=== PATIENT | male | born 1955 | race Caucasian/White ===

== ENCOUNTER 2016-10-03 18:43 | Observation (INO) | payer OTHER ==
[~2016-10-03] VITALS: Ht 175.3 cm; Wt 101.4 kg
--- NOTE | 2016-10-03 20:51 | ED ORDER SUMMARY ---
..... Patient: ADÁN MILLER OrderSheet [facility] VisitID: [id number] [place], [place] [id number] 60y, M Registration Date/Time: 10/03/2016 ORDER SHEET Weight: 105.7 kg (measured) Allergies: No Known Drug Allergy GENERAL ORDERS: Chest 1V Urgent (18:50 10/03/2016 Jayne LAMB) (Ack 18:58 Yenni) (19:03 JRomanelli R.N.) Mold Setter (Continuous) (18:51 10/03/2016 Jayne LAMB) (18:58 TLewis R.N.) (Ack 18:58 Yenni) CT Head wo Cont Urgent (18:51 10/03/2016 Jayne LAMB) (Ack 18:58 Yenni) (19:03 omanelli R.N.) CBC w Diff Urgent (18:51 10/03/2016 Jayne LAMB) (18:58 TLewis R.N.) (Ack 18:58 Yenni) CMP Urgent (18:51 10/03/2016 Jayne LAMB) (18:58 TLewis R.N.) (Ack 18:58 Yenni) UA-Culture if indicated Urgent (18:51 10/03/2016 Jayne LAMB) (Ack 18:58 Yenni) (20:26 ALawrence ER Tech1) PT with INR Urgent (18:51 10/03/2016 Jayne LAMB) (18:58 TLewis R.N.) (Ack 18:58 Yenni) PTT Urgent (18:51 10/03/2016 Jayne LAMB) (18:58 TLewis R.N.) (Ack 18:58 Yenni) Amylase Urgent (18:51 10/03/2016 Jayne LAMB) (18:58 TLewis R.N.) (Ack 18:58 Yenni) Lipase Urgent (18:51 10/03/2016 Jayne LAMB) (18:58 TLewis R.N.) (Ack 18:58 Yenni) CPK Urgent (18:51 10/03/2016 Jayen LAMB) (18:58 TLewis R.N.) (Ack 18:58 Yenni) Troponin-I Urgent (18:51 10/03/2016 Jayne LAMB) (Ack 18:58 Yenni) (18:58 Sukhdevwis R.N.) Ethyl Alcohol Urgent (18:51 10/03/2016 Jayne LAMB) (Ack 18:58 Yenni) (18:58 Sukhdevwis R.N.) Urine Drug Screen Urgent (18:51 10/03/2016 Jayne LAMB) (Ack 18:58 Yenni) (20:26 ALawrence ER Tech1) Oxygen (2 L/min) (NC) (18:51 10/03/2016 Jayne LAMB) (Ack 18:58 Yenni) (19:20 SRoberts R.N.) Pulse oximeter (18:51 10/03/2016 Jayne LAMB) (18:58 Dalias R.N.) (Ack 18:58 Yenni) EKG - ER Stat (18:51 10/03/2016 Jayne LAMB) (18:55 Yenni) MEDICATION ORDERS: Aspirin PO 325 mg (NOW) (20:50 10/03/2016 Jayne LAMB) (21:10 Sukhdevwis R.N.) IV FLUIDS: IV Saline Lock (18:51 10/03/2016 Jayne LAMB) (19:20 SRoberts R.N.) IV Saline Lock (18:52 10/03/2016 Jayne LAMB) (Ack 20:04 Val R.N.) (Cancelled: Other21:56 oberts R.N.) ORDER SHEET NOTES: [Electronically signed by Mag Riley R.N. (21:57 10/03/2016)] [Electronically signed by Ifeanyi Fernandez MD (22:56 10/04/2016)] [Electronically locked/signed by Mag Riley R.N. (21:57 10/03/2016)]
--- NOTE | 2016-10-03 20:51 | ED CLINICAL REPORT ---
Clinical Report - Physicians/Mid Levels [facility] [address] [place] [address] 10/03/2016 18:44 Patient: ADÁN MILLER Time Seen: 18:45. Arrived- By private vehicle. Historian- patient and spouse. HISTORY OF PRESENT ILLNESS Chief Complaint: slurred speech. This started just prior to arrival and is still present. It was abrupt in onset and has been waxing/waning. The patient has had visual disturbance with double vision of the right and left eye (during the event. This has resolved now). (Patient came to the emergency room with his . She was concerned because the patient apparently had been slurring his speech and they felt that he may have had some facial droop. She also says that he was stumbling and listing off to one side when trying to walk. The nurses noted some facial droop in triage when he first arrived. He was experiencing double vision at the time of the event but says that this has resolved now. He denies having had any focal numbness weakness or tingling. He acknowledges having drank about 6 beers and having smoked some marijuana prior to arriving here. He says that he has been retired for about a year and a half and says that it has been a "rough life change."). REVIEW OF SYSTEMS No chills, fever, sweats, calf pain or chest pain. No cough, difficulty breathing, pedal edema, palpitations or abdominal pain. No constipation, diarrhea, nausea, vomiting or urinary problems. PAST HISTORY PCP - [facility]. Additional Surgeries: Knee Surgery. Medications: Metoprolol Tartrate Oral, daily. Lisinopril Oral 20 mg, daily. Allergies: No Known Drug Allergy. SOCIAL HISTORY Heavy alcohol use; consumes six beers. History of heavy drug use: marijuana. Recently used drugs just prior to arrival. He lives with spouse. Has good social support. FAMILY HISTORY Heart disease in first-degree relative (father and sibling). ADDITIONAL NOTES The nursing notes have been reviewed. PHYSICAL EXAM Vital Signs: 10/03/2016 18:55 BP: 166/98. HR: 80. RR: 16. O2 saturation: 96%. Temp: 98.0 F. Appearance: Alert. Eyes: Pupils equal, round and reactive to light. ENT: Pharynx normal. Neck: Normal inspection. CVS: Normal heart rate and rhythm. Heart sounds normal. Respiratory: Decreased air movement. Abdomen: Soft and nontender. Bowel sounds normal. No mass. Obese. Back: Normal inspection. Skin: Skin warm and dry. Extremities: No calf tenderness. Neuro: Oriented X 3. No motor deficit. No sensory deficit. Reflexes normal. LABS, X-RAYS, AND EKG EKG: Q waves in lead II, III and aVF. Prior EKG unavailable. The study has been independently viewed by me. Chest X-ray: (RUL nodule). The X-rays were independently viewed by me. CT Head: No acute changes. The study was interpreted contemporaneously by me and discussed with the radiologist. Laboratory Tests: UA-Culture if indicated: (HILARIA: 10/03/2016 20:20) ( [facility] 10/03/2016 20:44) Final results Test Result Flag Units (Reference) URINE COLOR LIGHT YELLOW URINE APPEARANCE CLEAR URINE GLUCOSE NEGATIVE (NEGATIVE) URINE BILIRUBIN NEGATIVE (NEGATIVE) URINE KETONE NEGATIVE (NEGATIVE) URINE SPECIFIC GRAVITY <= 1.005 L (1.010-1.030) URINE PH 6.0 (5.0-8.0) URINE PROTEIN NEGATIVE (NEGATIVE) URINE UROBILINOGEN 0.2 EU/dL (0.2-1.0) URINE NITRITE NEGATIVE (NEGATIVE) URINE BLOOD NEGATIVE (NEGATIVE) URINE LEUK ESTERASE NEGATIVE (NEGATIVE) URINE RBC NONE SEEN rbc/hpf (0-1) URINE WBC NONE SEEN wbc/hpf (0-1) URINE EPITHELIAL CELLS NONE SEEN EPI/hpf (0-5) URINE BACTERIA NONE SEEN (NONE SEEN) URINE COMMENT CULT NOT INDICATED URINE CULTURES ARE SET-UP BASED ON THE FOLLOWING CRITERIA:POSITIVE NITRITEPOSITIVE LEUKOCYTE ESTERASEGREATER THAN 10 WHITE BLOOD CELLSMODERATE (2+) OR GREATER BACTERIA CBC w Diff: (HILARIA: 10/03/2016 18:45) ( [facility] 10/03/2016 19:03) Final results Test Result Flag Units (Reference) WHITE BLOOD COUNT 10.6 K/uL (4.5-11.5) RED BLOOD COUNT 5.30 M/uL (4.50-5.90) HEMOGLOBIN 17.0 gm/dL (13.5-17.5) HEMATOCRIT 49.8 % (41.0-53.0) MEAN CELL VOLUME 94 fL (80-100) MEAN CORPUSCULAR HGB 32 pg (26-34) MEAN CORPUSCULAR HGB CONC 34 g/dL (31-37) RED CELL DISTRIBUTION WIDTH 13.6 % (11.6-14.8) PLATELET COUNT 229 K/uL (150-400) NEUTROPHIL % 50.9 % (50-75) LYMPH % 33.9 % (25-40) MONO % 11.0 % (3-14) EOSINOPHIL % 3.2 % (0-4) BASOPHIL % 1.0 % (0-2) PT with INR: (HILARIA: 10/03/2016 18:45) ( [facility] 10/03/2016 19:03) Final results Test Result Flag Units (Reference) INR 0.9 (0.8-1.2) Low Intensity Therapy: INR 1.5-2.0 PT range 18.5-23.1Mod.Intensity Therapy: INR 2.0-3.0 PT range 23.1-31.5High Intensity Therapy: INR 2.5-3.5 PT range 27.4-35.5High Intensity Therapy 2: INR 3.0-4.0 PT range 31.5-39.3 APTT 24 SECONDS (24-34) Urine Drug Screen: (HILARIA: 10/03/2016 20:20) ( [facility] 10/03/2016 21:03) Final results Test Result Flag Units (Reference) AMPHETAMINE/METHAMPHETAMINE NEGATIVE (NEGATIVE) BARBITURATE NEGATIVE (NEGATIVE) BENZODIAZEPINE NEGATIVE (NEGATIVE) CANNABINOID POSITIVE H (NEGATIVE) COCAINE NEGATIVE (NEGATIVE) ECSTASY NEGATIVE (NEGATIVE) METHADONE NEGATIVE (NEGATIVE) OPIATE NEGATIVE (NEGATIVE) The urine drug screen is a qualitative screening test fordrug overdose and abuse. All screen results should beconsidered as presumptive.Drugs screened for are as follows:BenzodiazepinesCocaineAmphetamines/MetamphetaminesTHC (Tetrahydrocannabinol)OpiatesBarbituratesEcstasyMethadonePositive results are unconfirmed. For confirmation, notifythe lab for the specimen to be sent to the reference lab.All confirmations must be performed by a differentmethodology.The ingestion of natural herbal and plant productscontaining Ephedra/Ephedra metabolites can produce in urineone or more substances capable of cross reacting withamphetamine/methamphetamine immunoassays. These testsprovide a preliminary result only. A more specificalternative chemical method must be used to obtain aconfirmed analytical result. CMP: (HILARIA: 10/03/2016 18:45) ( MsgRcvd 10/03/2016 19:27) Final results Test Result Flag Units (Reference) GLUCOSE 105 mg/dL (70-110) BUN 17 mg/dL (7-18) CREATININE 1.0 mg/dL (0.6-1.3) Estimated GFR >60 mL/min Estimated GFR- >60 mL/min Note: Persistent reduction over 3 months in eGFR<60 mL/min/1.73 m2 defines CKD. Patients with eGFR values>=60 mL/min/1.73 m2 may also have CKD if evidence ofpersistent proteinuria. Additional information may be foundat www.kidney.org. SODIUM 135 L mmol/L (136-145) POTASSIUM 3.8 mmol/L (3.5-5.1) CHLORIDE 100 mmol/L (98-107) CARBON DIOXIDE 26 mmol/L (21-32) CALCIUM 9.0 mg/dL (8.5-10.1) TOTAL PROTEIN 7.4 g/dL (6.4-8.2) ALBUMIN 3.7 g/dL (3.3-5.0) BILIRUBIN, TOTAL 0.3 mg/dL (0.0-1.0) ALKALINE PHOSPHATASE 55 U/L (46-116) AST (SGOT) 38 H U/L (15-37) ALT (SGPT) 68 U/L (12-78) LIPASE 140 U/L (73-393) AMYLASE 72 U/L (25-115) CPK 90 U/L (24-260) TROPONIN I <0.05 L ng/mL (0.00-1.5) TROPONIN REFERENCE RANGE:<0.1 NEGATIVE0.1-1.5 INDETERMINANT>1.5 POSITIVE ETHYL ALCOHOL 153 H mg/dL (3-10) . PROGRESS AND PROCEDURES Course of Care: Patient is stable. Discussed case with hospitalist, (Jose Elias). Reviewed test results and need for additional work-up. Agreed upon treatment plan, need for patient follow-up and decision to place in observation. Health care provider will see patient in hospital. Patient/family counseled. Old medical records ordered. Old records unavailable. Disposition: Admitted. Observation. CLINICAL IMPRESSION Pulmonary nodule right upper lobe. Transient ischemic attack. Substance abuse- alcohol, marijuana. (Electronically signed by Ifeanyi Fernandez MD 10/04/2016 22:56)
--- NOTE | 2016-10-03 20:51 | ED ORDER SUMMARY ---
..... Patient: ADÁN MILLER OrderSheet [facility] VisitID: [id number] [place], [place] [phone] 60y, M Registration Date/Time: 10/03/2016 ORDER SHEET Weight: 105.7 kg (measured) Allergies: No Known Drug Allergy GENERAL ORDERS: Chest 1V Urgent (18:50 10/03/2016 Jayne LAMB) (Ack 18:58 Yenni) (19:03 JRomanelli R.N.) Sponge Fisherman (Continuous) (18:51 10/03/2016 Jayne LAMB) (18:58 TLewis R.N.) (Ack 18:58 Yenni) CT Head wo Cont Urgent (18:51 10/03/2016 Jayne LAMB) (Ack 18:58 Yenni) (19:03 omanelli R.N.) CBC w Diff Urgent (18:51 10/03/2016 Jayne LAMB) (18:58 TLewis R.N.) (Ack 18:58 Yenni) CMP Urgent (18:51 10/03/2016 Jayne LAMB) (18:58 TLewis R.N.) (Ack 18:58 Yenni) UA-Culture if indicated Urgent (18:51 10/03/2016 Jayne LAMB) (Ack 18:58 Yenni) (20:26 ALawrence ER Tech1) PT with INR Urgent (18:51 10/03/2016 Jayne LAMB) (18:58 TLewis R.N.) (Ack 18:58 Yenni) PTT Urgent (18:51 10/03/2016 Jayne LAMB) (18:58 TLewis R.N.) (Ack 18:58 Yenni) Amylase Urgent (18:51 10/03/2016 Jayne LAMB) (18:58 TLewis R.N.) (Ack 18:58 Yenni) Lipase Urgent (18:51 10/03/2016 Jayne LAMB) (18:58 TLewis R.N.) (Ack 18:58 Yenni) CPK Urgent (18:51 10/03/2016 Jayne LAMB) (18:58 TLewis R.N.) (Ack 18:58 Yenni) Troponin-I Urgent (18:51 10/03/2016 Jayne LAMB) (Ack 18:58 Yenni) (18:58 Sukhdevwis R.N.) Ethyl Alcohol Urgent (18:51 10/03/2016 Jayne LAMB) (Ack 18:58 Yenni) (18:58 Sukhdevwis R.N.) Urine Drug Screen Urgent (18:51 10/03/2016 Jayne LAMB) (Ack 18:58 Yenni) (20:26 ALawrence ER Tech1) Oxygen (2 L/min) (NC) (18:51 10/03/2016 Jayne LAMB) (Ack 18:58 Yenni) (19:20 SRoberts R.N.) Pulse oximeter (18:51 10/03/2016 Jayne LAMB) (18:58 Dalias R.N.) (Ack 18:58 Yenni) EKG - ER Stat (18:51 10/03/2016 Jayne LAMB) (18:55 Yenni) MEDICATION ORDERS: Aspirin PO 325 mg (NOW) (20:50 10/03/2016 Jayne LAMB) (21:10 Sukhdevwis R.N.) IV FLUIDS: IV Saline Lock (18:51 10/03/2016 Jayne LAMB) (19:20 SRoberts R.N.) IV Saline Lock (18:52 10/03/2016 Jayne LAMB) (Ack 20:04 Val R.N.) (Cancelled: Other21:56 oberts R.N.) ORDER SHEET NOTES: [Electronically signed by Mag Riley R.N. (21:57 10/03/2016)] [Electronically signed by Ifeanyi Fernandez MD (22:56 10/04/2016)] [Electronically locked/signed by Mag Riley R.N. (21:57 10/03/2016)]
--- NOTE | 2016-10-03 20:51 | ED NURSING NOTES ---
Clinical Report - Nurses [facility] [address] [place] [address] 10/03/2016 18:44 [id number] Triage time 18:43. Acuity: LEVEL 2. Chief Complaint: IMPAIRED SPEECH and FACIAL DROOP. 18:55 10/03/16. Alert. SEPSIS SCREEN: Sepsis Screen. Negative (no infection suspected/documented). MARIANA COMA SCORE: [place] Coma Scale: 15- eyes open spontaneously (4); best verbal response- oriented x 4 (5); best motor response- obeys commands (6). --18:55 Kolby Roe R.N. 18:55 10/03/16. BP: 166/98. HR: 80. RR: 16. O2 saturation: 96%. Temp: 98.0 F. Pain level now 0/10. --18:55 Kolby Roe R.N. Weight: 105.7 kg measured. Height/Length: 69 inches Per Patient. BMI: 34.4. --18:51 Kolby Roe R.N. Medications Lisinopril Oral 20 mg, daily. --18:53 Kolby Roe R.N. Metoprolol Tartrate Oral, daily. --18:54 Kolby Roe R.N. Allergies No Known Drug Allergy. --18:54 Kolby Roe R.N. Medication/allergy information source: the patient's spouse. --18:55 Kolby Roe R.N. History Historian: patient. ( Code stroke called at 1843. Per , he had some slurred speech and confusion and left sided facial weakness. slight left sided facial droop in lobby and some confusion present. tearful in triage. states he smoked marijuana just prior to arrival and had about 6 beers just RETIREMENT CONSULTANT. tearful in triage). This started just prior to arrival. Patient was last known well (at 1800). Onset. (10 minutes RETIREMENT CONSULTANT). Treatment RETIREMENT CONSULTANT: None. SOCIAL HX: Former smoker, end date 07/2016. Alcohol use; consumes six beers a day. History of drug use: marijuana. FALL RISK ASSESSMENT: Fall risk assessment completed. No fall risk identified. NUTRITIONAL RISK ASSESSMENT: The nutritional risk assessment revealed no deficiencies. FUNCTIONAL ASSESSMENT: Functional assessment: no impairments noted. LEARNING NEEDS ASSESSMENT: The learning needs assessment revealed no barriers. SKIN INTEGRITY ASSESSMENT: Skin integrity risk assessment completed. No skin integrity risk identified. --18:55 Kolby Roe R.N. PROBLEMS: Hypercholesterolemia. Hypertension. --18:55 Kolby Roe R.N. ADDITIONAL SURGERIES: Knee Surgery. --18:55 Kolby Roe R.N. Interventions ID band on patient. To treatment room. --18:55 Kolby Roe R.N. PHYSICAL ASSESSMENT To room via wheelchair. Patient gowned. GENERAL / NEURO / PSYCH: Awake. Oriented X 4. Alert. Appears in no acute distress. Speech normal. Mood/affect normal. Moves all extremities. No motor deficit. No sensory deficit. HEENT: No facial asymmetry noted. Pharynx within normal limits. RESPIRATORY: Breath sounds within normal limits. Respirations not labored. CVS: Capillary refill less than 2 seconds. SKIN: Skin is intact, warm and dry. --19:07 Mag Riley R.N. NURSING PROGRESS NOTES 18:52 10/03/16. Patient transported to CT. --18:55 Kolby Roe R.N. The plan of care for this patient has been created. archivist military history, pulse oximeter and NIBP monitor placed on patient. Patient gowned. Head of bed elevated. Call light placed in reach. Bed placed in lowest position. Brakes of bed on. --18:56 Kolby Roe R.N. Finger stick glucose: 95; performed by tech; result shown to the RN. --18:56 Kolby Roe R.N. EKG time: (18:53). EKG was ordered, performed by a tech and shown to the ED physician. --18:56 Critsina Bell <<STRICKEN ENTRY-- Patient transported to CT by stretcher with tech. (18:45 Oct 03 2016). --19:04 Neftaly Harvey R.N. --END STRIKE>> Correction --19:05 Neftaly Harvey R.N. Patient returned from CT by stretcher with tech. ([id number]). --19:04 Neftaly Harvey R.N. 18:53 10/03/2016 Site #1 started via IV in the right antecubital space with an 20g angiocath, with aseptic technique and good blood return; one attempt. Blood drawn: rainbow set. Labeled in the presence of the patient and sent to the lab. Saline lock flushed with 10 mL saline. --19:09 Mag Riley R.N. 19:05 10/03/16. ( CXR in room). --19:05 Neftaly Harvey R.N. 19:10/03/16. BP: 140/91 taken on the left arm, while sitting. HR: 76. RR: 20. O2 saturation: 98% on nasal cannula at 2 liters/minute. Pain level now: 0/10. --19:11 Mag Riley R.N. Oxygen administered by nasal cannula at 2 liters. archivist military history, pulse oximeter and NIBP monitor placed on patient; kaiawhina- Lead II; monitor alarms on. --19:21 Mag Riley R.N. 21:10 10/03/2016 Aspirin PO 325 mg given. Allergies verified and confirmed 5 rights. --21:10 Kaiden Samuels R.N. 21:23 10/03/16. BP: 118/75. HR: 82. RR: 18. O2 saturation: 99% on nasal cannula at 2 liters/minute. Temp: deferred. Pain level now: 0/10. 20:11 10/03/16. BP: 126/78. HR: 85. RR: 16. O2 saturation: 98% on nasal cannula at 2 liters/minute. Pain level now: 0/10. 19:09 10/03/16. BP: 140/91 taken on the left arm, while sitting. HR: 76. RR: 20. O2 saturation: 98% on nasal cannula at 2 liters/minute. Pain level now: 0/10. --21:24 Mag Riley R.N. 21:50 10/03/2016 Site #[address] upon admission; patent, no pain and no signs of infection or infiltration. Good blood return present; flushes easily. --21:57 Mag Riley R.N. DISPOSITION / DISCHARGE Admitted to Acute Care. Transported via stretcher by [employer] with O2. Report was given to a nurse via a phone call. Report included patient's care, treatment, medications, reviewed medication reconcilliation, and condition (including any recent changes or anticipated changes). All questions were answered. Report was acknowledged and care was transferred. (MARYJANE Wayne). --21:35 Mag Riley R.N. 21:23 10/03/16. BP: 118/75. HR: 82. RR: 18. O2 saturation: 99% on nasal cannula at 2 liters/minute. Temp: deferred. Pain level now: 0/10. 20:11 10/03/16. BP: 126/78. HR: 85. RR: 16. O2 saturation: 98% on nasal cannula at 2 liters/minute. Pain level now: 0/10. 19:09 10/03/16. BP: 140/91 taken on the left arm, while sitting. HR: 76. RR: 20. O2 saturation: 98% on nasal cannula at 2 liters/minute. Pain level now: 0/10. 18:46 10/03/16. BP: 166/98. HR: 80. RR: 16. O2 saturation: 96%. Temp: 98.0 F. Pain level now 0/10. --21:35 Mag Riley R.N. Patient's personal items include: shirt, pants, undergarments, socks, shoes and hat; items were placed in belongings bag and transported with the patient. Collection of belongings was witnessed by 1 nurse. --21:36 Mag Riley R.N. Locked/Released at 10/03/2016 21:57 by Mag Riley R.N.
--- NOTE | 2016-10-03 20:51 | ED NURSING NOTES ---
Clinical Report - Nurses [facility] [address] [place] [address] 10/03/2016 18:44 [id number] Triage time 18:43. Acuity: LEVEL 2. Chief Complaint: IMPAIRED SPEECH and FACIAL DROOP. 18:55 10/03/16. Alert. SEPSIS SCREEN: Sepsis Screen. Negative (no infection suspected/documented). MARIANA COMA SCORE: Currie Coma Scale: 15- eyes open spontaneously (4); best verbal response- oriented x 4 (5); best motor response- obeys commands (6). --18:55 Kolby Roe R.N. 18:55 10/03/16. BP: 166/98. HR: 80. RR: 16. O2 saturation: 96%. Temp: 98.0 F. Pain level now 0/10. --18:55 Kolby Roe R.N. Weight: 105.7 kg measured. Height/Length: 69 inches Per Patient. BMI: 34.4. --18:51 Kolby Roe R.N. Medications Lisinopril Oral 20 mg, daily. --18:53 Kolby Roe R.N. Metoprolol Tartrate Oral, daily. --18:54 Kolby Roe R.N. Allergies No Known Drug Allergy. --18:54 Kolby Roe R.N. Medication/allergy information source: the patient's spouse. --18:55 Kolby Roe R.N. History Historian: patient. ( Code stroke called at 1843. Per , he had some slurred speech and confusion and left sided facial weakness. slight left sided facial droop in lobby and some confusion present. tearful in triage. states he smoked marijuana just prior to arrival and had about 6 beers just UX LEAD. tearful in triage). This started just prior to arrival. Patient was last known well (at 1800). Onset. (10 minutes UX LEAD). Treatment UX LEAD: None. SOCIAL HX: Former smoker, end date 07/2016. Alcohol use; consumes six beers a day. History of drug use: marijuana. FALL RISK ASSESSMENT: Fall risk assessment completed. No fall risk identified. NUTRITIONAL RISK ASSESSMENT: The nutritional risk assessment revealed no deficiencies. FUNCTIONAL ASSESSMENT: Functional assessment: no impairments noted. LEARNING NEEDS ASSESSMENT: The learning needs assessment revealed no barriers. SKIN INTEGRITY ASSESSMENT: Skin integrity risk assessment completed. No skin integrity risk identified. --18:55 Kolby oRe R.N. PROBLEMS: Hypercholesterolemia. Hypertension. --18:55 Kolby Roe R.N. ADDITIONAL SURGERIES: Knee Surgery. --18:55 Kolby Roe R.N. Interventions ID band on patient. To treatment room. --18:55 Kolby Roe R.N. PHYSICAL ASSESSMENT To room via wheelchair. Patient gowned. GENERAL / NEURO / PSYCH: Awake. Oriented X 4. Alert. Appears in no acute distress. Speech normal. Mood/affect normal. Moves all extremities. No motor deficit. No sensory deficit. HEENT: No facial asymmetry noted. Pharynx within normal limits. RESPIRATORY: Breath sounds within normal limits. Respirations not labored. CVS: Capillary refill less than 2 seconds. SKIN: Skin is intact, warm and dry. --19:07 Mag Riley R.N. NURSING PROGRESS NOTES 18:52 10/03/16. Patient transported to CT. --18:55 Kolby Roe R.N. The plan of care for this patient has been created. cafeteria monitor, pulse oximeter and NIBP monitor placed on patient. Patient gowned. Head of bed elevated. Call light placed in reach. Bed placed in lowest position. Brakes of bed on. --18:56 Kolby Roe R.N. Finger stick glucose: 95; performed by tech; result shown to the RN. --18:56 Kolby Roe R.N. EKG time: (18:53). EKG was ordered, performed by a tech and shown to the ED physician. --18:56 Cristina Bell <<STRICKEN ENTRY-- Patient transported to CT by stretcher with tech. (18:45 Oct 03 2016). --19:04 Neftaly Harvey R.N. --END STRIKE>> Correction --19:05 Neftaly Harvey R.N. Patient returned from CT by stretcher with tech. ([id number]). --19:04 Neftaly Harvey R.N. 18:53 10/03/2016 Site #1 started via IV in the right antecubital space with an 20g angiocath, with aseptic technique and good blood return; one attempt. Blood drawn: rainbow set. Labeled in the presence of the patient and sent to the lab. Saline lock flushed with 10 mL saline. --19:09 Mag Riley R.N. 19:05 10/03/16. ( CXR in room). --19:05 Neftaly Harvey R.N. 19:10/03/16. BP: 140/91 taken on the left arm, while sitting. HR: 76. RR: 20. O2 saturation: 98% on nasal cannula at 2 liters/minute. Pain level now: 0/10. --19:11 Mag Riley R.N. Oxygen administered by nasal cannula at 2 liters. cafeteria monitor, pulse oximeter and NIBP monitor placed on patient; environmental monitoring technician- Lead II; monitor alarms on. --19:21 Mag Riley R.N. 21:10 10/03/2016 Aspirin PO 325 mg given. Allergies verified and confirmed 5 rights. --21:10 Kaiden Samuels R.N. 21:23 10/03/16. BP: 118/75. HR: 82. RR: 18. O2 saturation: 99% on nasal cannula at 2 liters/minute. Temp: deferred. Pain level now: 0/10. 20:11 10/03/16. BP: 126/78. HR: 85. RR: 16. O2 saturation: 98% on nasal cannula at 2 liters/minute. Pain level now: 0/10. 19:09 10/03/16. BP: 140/91 taken on the left arm, while sitting. HR: 76. RR: 20. O2 saturation: 98% on nasal cannula at 2 liters/minute. Pain level now: 0/10. --21:24 Mag Riley R.N. 21:50 10/03/2016 Site #[address] upon admission; patent, no pain and no signs of infection or infiltration. Good blood return present; flushes easily. --21:57 Mag Riley R.N. DISPOSITION / DISCHARGE Admitted to Acute Care. Transported via stretcher by [employer] with O2. Report was given to a nurse via a phone call. Report included patient's care, treatment, medications, reviewed medication reconcilliation, and condition (including any recent changes or anticipated changes). All questions were answered. Report was acknowledged and care was transferred. (MARYJANE Wayne). --21:35 Mag Riley R.N. 21:23 10/03/16. BP: 118/75. HR: 82. RR: 18. O2 saturation: 99% on nasal cannula at 2 liters/minute. Temp: deferred. Pain level now: 0/10. 20:11 10/03/16. BP: 126/78. HR: 85. RR: 16. O2 saturation: 98% on nasal cannula at 2 liters/minute. Pain level now: 0/10. 19:09 10/03/16. BP: 140/91 taken on the left arm, while sitting. HR: 76. RR: 20. O2 saturation: 98% on nasal cannula at 2 liters/minute. Pain level now: 0/10. 18:46 10/03/16. BP: 166/98. HR: 80. RR: 16. O2 saturation: 96%. Temp: 98.0 F. Pain level now 0/10. --21:35 Mag Riley R.N. Patient's personal items include: shirt, pants, undergarments, socks, shoes and hat; items were placed in belongings bag and transported with the patient. Collection of belongings was witnessed by 1 nurse. --21:36 Mag Riley R.N. Locked/Released at 10/03/2016 21:57 by Mag Riley R.N.
--- NOTE | 2016-10-03 20:58 | DIAGNOSTIC IMAGING REPORT ---
PROCEDURE: CT HEAD WITHOUT CONTRAST INDICATION: STROKE TECHNIQUE: Noncontrast axial images with sagittal and coronal reformations. COMPARISON: None. FINDINGS: Mild cortical atrophy and minor white matter chronic ischemic changes. Normal ventricular system. No evidence of acute intracranial process. Left maxillary sinus disease. Mastoids are clear. IMPRESSION: 1. Mild atrophy and minor white matter chronic ischemic changes. 2. Findings discussed with Dr. Fernandez at 06:59 p.m., [place] Standard Time.
--- NOTE | 2016-10-03 21:00 | DIAGNOSTIC IMAGING REPORT ---
PROCEDURE: XR CHEST 1 VIEW INDICATION: CODE STROKE TECHNIQUE: Portable AP view 07:03 p.m. COMPARISON: None. FINDINGS: Poor inspiration with mild bibasilar atelectasis. Heart and mediastinum are normal. Thorax is normal. IMPRESSION: 1. Poor inspiration with mild bibasilar atelectasis.
--- NOTE | 2016-10-03 21:24 | History & Physical Report ---
Admission Admit Date 10/03/16 History Chief Complaint Facial Droop, Slurred Speech History of Present Illness Patient is a 60 year old male with a past medical history of Essential Hypertension, Hyperlipidemia, Alcoholism, and Tobacco Use Disorder. He presents to the ER complaining of sudden onset of facial droop and slurred speech. Pt states he was in his usual state of health today, when his noticed he was slouched in his chair. He seemed to be leaning to the right side. When she looked at him, the right side of his face was drooping. Pt states his speech was slurred also and he experienced blurry vision. Pt states he has been taking all of his medications as prescribed. He denies any chest pain, shortness of breath, nausea, vomiting, headache, palpitations, dizziness, and weakness at present. By the time pt was seen in the ER, his symptoms had completely resolved. Pt has no other complaints or concerns at this time. Patient History 1. Alcoholism 2. Tobacco use disorder 3. Hyperlipidemia 4. Essential hypertension Social History Pt does have a long hx of alcoholism. He also has a hx of tobacco use disorder. Pt denies any hx of drug use. Family History Family history was reviewed; no changes noted. Medications and Allergies Medications Current Medications Sig/Oscar Start time Last Medication Dose Route Stop Time Status Admin Atorvastatin Calcium 40 MG QPM 10/04 1800 UNV PO Aspirin 325 MG DAILY 10/04 899 UNV PO Multivit/ 1 TAB DAILY 10/04 899 UNV Folic Acid/Iron PO Thiamine HCl 100 MG DAILY 10/04 09 UNV PO Acetaminophen 650 MG Q6H PRN 10/03 2114 UNV PO Al Hydrox/Mg Hydrox/ 15 ML Q1H PRN 10/03 2114 UNV Simethicone PO Atropine Sulfate 0.5 MG Q3MIN PRN 10/03 2114 UNV IV Diazepam 5 MG PRN PRN 10/03 2114 UNV IV Docusate Sodium 250 MG BID PRN 10/03 2114 UNV PO Haloperidol Lactate 2 MG Q1H PRN 10/03 2114 UNV IV Hydromorphone HCl 1 MG Q6H PRN 10/03 2114 UNV IV Lidocaine HCl See Dose ONCE PRN 10/03 2114 UNi Insts (1) IV Magnesium Hydroxide 10 ML DAILY PRN 10/03 2114 UNV PO Morphine Sulfate 2 MG Q3M PRN 10/03 2114 UNV IV Multivitamins 10 ML ONCE ONE 10/03 2114 UNV Thiamine HCl 100 MG IV 10/04 513 Folic Acid 1 MG Sodium Chloride 500 ML Naloxone HCl 0.4 MG PRN PRN 10/03 2114 UNV IV Nitroglycerin 0.4 MG Q5M PRN 10/03 2114 UNV SL Ondansetron HCl 4 MG Q6H PRN 10/03 2114 UNV IV Sodium Chloride 1,000 ML ASDIRECTED 10/03 2114 UNV IV Zolpidem Tartrate 5 MG QHS PRN 10/03 2114 UNV PO Famotidine/Sodium 50 ML Q12HR 10/03 2104 UNVr Chloride IV Dose Instructions: (1)Lidocaine HCl: 1.5 MG/KG Pts home medications have not yet been reconciled. Allergies Coded Allergies: No Known Drug Allergy (04/10/01) Uncoded Allergies: Food Allergies: NKA Med Allergies: NKA Review of Systems Other All systems reviewed and are negative except for what has already been mentioned in the HPI. Physical Exam Vital Signs / I&Os TEMP: 98.9 HR: 80 BP: 118/68 RR: 18 SpO2: 98% on room air Other GENERAL: NAD; Pt laying comfortably in bed HEENT: AT/NC; PERRLA, EOMI; MM Moist CARDIAC: RRR, No M/R/G appreciated PULM: Clear to auscultation bilaterally ABD: Soft, NT, ND, Positive BS in all quadrants; No hepatosplenomegaly appreciated EXT: No C/C/E in bilateral upper and lower extremity; No calve tenderness bilaterally SKIN: Warm, dry, pink, and intact NEURO: Alert and oriented x3; Following all commands; CN II-XII are grossly intact; 4/5 strength in bilateral upper and lower extremitites PSYCH: Normal mood and affect LAB Results Laboratory Tests 10/03 Chemistry Plasma Sodium (136 - 145 mmol/L) 135 Plasma Potassium (3.5 - 5.1 mmol/L) 3.8 Plasma Chloride (98 - 107 mmol/L) 100 CO2 (Enzymatic) (21 - 32 mmol/L) 26 BUN (7 - 18 mg/dL) 17 Creatinine (0.6 - 1.3 mg/dL) 1.0 Est GFR ( Amer) (mL/min) >60 Est GFR (Non-Af Amer) (mL/min) >60 Glucose (70 - 110 mg/dL) 105 Plasma Calcium (8.5 - 10.1 mg/dL) 9.0 Total Bilirubin (0.0 - 1.0 mg/dL) 0.3 AST (15 - 37 U/L) 38 ALT (12 - 78 U/L) 68 Alkaline Phosphatase (46 - 116 U/L) 55 Creatine Kinase (24 - 260 U/L) 90 Troponin (0.00 - 1.5 ng/mL) <0.05 Total Protein (6.4 - 8.2 g/dL) 7.4 Albumin (3.3 - 5.0 g/dL) 3.7 Amylase (25 - 115 U/L) 72 Lipase (73 - 393 U/L) 140 Coagulation INR (0.8 - 1.2) 0.9 APTT (24 - 34 SECONDS) 24 Hematology WBC (4.5 - 11.5 K/uL) 10.6 RBC (4.50 - 5.90 M/uL) 5.30 Hgb (13.5 - 17.5 gm/dL) 17.0 Hct (41.0 - 53.0 %) 49.8 MCV (80 - 100 fL) 94 MCH (26 - 34 pg) 32 RDW (11.6 - 14.8 %) 13.6 Neut % (Auto) (50 - 75 %) 50.9 Lymph % (Auto) (25 - 40 %) 33.9 Chambers % (Auto) (3 - 14 %) 11.0 Eos % (Auto) (0 - 4 %) 3.2 Baso % (Auto) (0 - 2 %) 1.0 Plt Count, EDTA (150 - 400 K/uL) 229 PUBS MCHC (31 - 37 g/dL) 34 Toxicology Urine Opiates Screen (NEGATIVE) NEGATIVE Urine Methadone Screen (NEGATIVE) NEGATIVE Ur Barbiturates Screen (NEGATIVE) NEGATIVE U Amphetamin/Meth Scrn (NEGATIVE) NEGATIVE MDMA (Ecstasy) Screen (NEGATIVE) NEGATIVE U Benzodiazepines Scrn (NEGATIVE) NEGATIVE Urine Cocaine Screen (NEGATIVE) NEGATIVE U Cannabinoids Screen (NEGATIVE) POSITIVE Plasma/Serum Ethyl Alc (3 - 10 mg/dL) 153 Urines Urine Color LIGHT YELLOW Urine Appearance CLEAR Urine pH (5.0 - 8.0) 6.0 Ur Specific [place] (1.010 - 1.030) <= 1.005 Urine Protein (NEGATIVE) NEGATIVE Urine Ketones (NEGATIVE) NEGATIVE Urine Blood (NEGATIVE) NEGATIVE Urine Nitrite (NEGATIVE) NEGATIVE Urine Bilirubin (NEGATIVE) NEGATIVE Urine Urobilinogen (0.2 - 1.0 EU/dL) 0.2 Ur Leukocyte Esterase (NEGATIVE) NEGATIVE Urine RBC (0 - 1 rbc/hpf) NONE SEEN Urine WBC (0 - 1 wbc/hpf) NONE SEEN Ur Epithelial Cells (0 - 5 EPI/hpf) NONE SEEN Urine Bacteria (NONE SEEN) NONE SEEN Urine Glucose (NEGATIVE) NEGATIVE Urine Comment CULT NOT INDICATED Imaging CT of the brain did not reveal any acute intracranial process. Chest x-ray was negative for an acute process. Assessment and Plan Problem List 1. TIA (transient ischemic attack) Plan - Admit to acute care with telemetry under observation - Will order a Lipid Panel for the AM - Start Aspirin 325 mg PO daily - NPO for now until ST evaluation - IV Normal Saline at 100 mL/hour while pt is NPO - Hold home antihypertensives for initial 24 hours for permissive hypertension - PT evaluation in AM - Will order an MRI of the brain and an MRA of the head and neck - Will order an ECHO for the AM - Start Atorvastatin 40 mg PO q HS now 2. Essential hypertension Plan - Pt is normally on Lisinopril and Metoprolol at home, however we will hold both for now given #1 - Monitor BP closely 3. Hyperlipidemia Plan - Check Lipid Panel in AM - Start Atorvastatin 40 mg PO q HS now 4. Alcoholism Plan - Will start pt on Thiamine and Multivitamin - Start Alcohol Withdrawal protocol now
[2016-10-03 22:15] VITALS: BP 135/93
[2016-10-04 00:15] VITALS: BP 117/82
[2016-10-04 02:35] VITALS: BP 139/93
[2016-10-04 08:00] VITALS: BP 159/103
[2016-10-04 11:04] VITALS: BP 164/113
[2016-10-04] MEDS ORDERED: HYDROCHLOROTHIA25 MG PO (11:29)
[2016-10-04] MEDS ORDERED: LISINOPRIL10 MG PO (11:29)
--- NOTE | 2016-10-04 11:36 | DIAGNOSTIC IMAGING REPORT ---
PROCEDURE: US BILATERAL CAROTID DOPPLER INDICATION: tia TECHNIQUE: Color Doppler duplex imaging of the carotid and vertebral vessels. COMPARISON: None. FINDINGS: Minimal plaque bilaterally. Right carotid system: No significant stenosis visualized. The waveforms are normal. Left carotid system: No significant stenosis visualized. The waveforms are normal. Vertebral System: Antegrade vertebral artery flow bilaterally. Right common carotid artery peak systolic velocity 93 cm/second. Right internal carotid artery peak systolic velocity 64 cm/second. Right external carotid artery peak systolic velocity 86 cm/second. Right tlfmxhwb-pl-gdvwgz carotid artery ratio 0.69 Right vertebral artery peak systolic velocity 30 cm/second. Left common carotid artery peak systolic velocity 86 cm/second. Left internal carotid artery peak systolic velocity 78 cm/second. Left external carotid artery peak systolic velocity 101 cm/second. Left yokkhcpa-uz-esgfrl carotid artery ratio 0.91 Left vertebral artery peak systolic velocity 34 cm/second. IMPRESSION: 1. No hemodynamically significant stenosis in either carotid system. 2. Antegrade vertebral artery flow bilaterally. Velocity criteria are extrapolated from diameter data as defined by the Society of Radiologists in Ultrasound Consensus Conference, Radiology 2003; 229; 340-346.
--- NOTE | 2016-10-04 11:36 | DIAGNOSTIC IMAGING REPORT ---
PROCEDURE: US BILATERAL CAROTID DOPPLER INDICATION: tia TECHNIQUE: Color Doppler duplex imaging of the carotid and vertebral vessels. COMPARISON: None. FINDINGS: Minimal plaque bilaterally. Right carotid system: No significant stenosis visualized. The waveforms are normal. Left carotid system: No significant stenosis visualized. The waveforms are normal. Vertebral System: Antegrade vertebral artery flow bilaterally. Right common carotid artery peak systolic velocity 93 cm/second. Right internal carotid artery peak systolic velocity 64 cm/second. Right external carotid artery peak systolic velocity 86 cm/second. Right rqxzqgyw-il-jxbeys carotid artery ratio 0.69 Right vertebral artery peak systolic velocity 30 cm/second. Left common carotid artery peak systolic velocity 86 cm/second. Left internal carotid artery peak systolic velocity 78 cm/second. Left external carotid artery peak systolic velocity 101 cm/second. Left mdgrhrxw-vw-nrqvvq carotid artery ratio 0.91 Left vertebral artery peak systolic velocity 34 cm/second. IMPRESSION: 1. No hemodynamically significant stenosis in either carotid system. 2. Antegrade vertebral artery flow bilaterally. Velocity criteria are extrapolated from diameter data as defined by the Society of Radiologists in Ultrasound Consensus Conference, Radiology 2003; 229; 340-346.
--- NOTE | 2016-10-04 14:01 | DIAGNOSTIC IMAGING REPORT ---
PROCEDURE: 2-D M-mode echo Doppler CLINICAL INDICATION: CVA TECHNIQUE: Standard 2-D M-mode echo Doppler technique COMPARISON: None available FINDINGS: The aortic valve exhibits sclerosis without evidence for stenosis or insufficiency no embolic source seen. The mitral valve is normal configuration without stenosis or insufficiency the tricuspid and pulmonic valves are normal. No embolic source seen on the valves. Left and right atrial dimensions are normal ventricular dimension is normal LVH present ejection fraction visually estimated to be 55-60% with normal contraction stage I diastolic dysfunction apparent. Right ventricular chamber size and function normal The aortic root is mildly dilated measuring 3.9 cm. definitive evidence of PFO not seen IMPRESSION: Aortic sclerosis no stenosis No embolic source seen Mildly dilated aortic root measuring 3.9 cm Left Ventricular ejection fraction 55-60% with normal contraction Stage I diastolic dysfunction
[2016-10-04 14:26] VITALS: BP 139/98
--- NOTE | 2016-10-04 16:11 | DIAGNOSTIC IMAGING REPORT ---
PROCEDURE: MR BRAIN W/WO CONTRAST INDICATION: tia TECHNIQUE: Multiplanar multisequence MRI imaging of the brain without contrast. Post administration of 20 ml ProHance gadolinium based IV contrast, three plane T1 fat sat sequences were obtained. COMPARISON: Head CT dated 10/03/2016 FINDINGS: The midline structures are normally formed. The ventricular system is normal in size. Basal cisterns are patent. Flow voids in the major intracranial vessels are normal. No vascular malformations seen post contrast. There is a small left thalamic infarct. No restricted diffusion to suggest acute ischemia. No evidence of acute or chronic intraparenchymal or extra-axial hemorrhage. No mass, mass effect, or midline shift. No suspicious enhancement. There is a fluid in the left maxillary sinus. IMPRESSION: 1. Small left thalamic infarct. 2. Left maxillary sinusitis
--- NOTE | 2016-10-04 16:21 | DIAGNOSTIC IMAGING REPORT ---
PROCEDURE: Magnetic Resonance angiogram of the brain. INDICATION: TIA TECHNIQUE: Sagittal and axial rxac-[id number] axial T2 and axial T2 FLAIR, and diffusion-weighted imaging through the brain were obtained. No contrast. COMPARISON: MR of the brain with contrast same date FINDINGS: No evidence of aneurysm mass cannot formation traversed and the vascularity. The major vessels are patent without evidence of atherosclerotic disease. IMPRESSION: 1. Normal MR angiogram of the brain.
--- NOTE | 2016-10-04 16:21 | DIAGNOSTIC IMAGING REPORT ---
PROCEDURE: Magnetic Resonance angiogram of the brain. INDICATION: TIA TECHNIQUE: Sagittal and axial tpan-hv-gyyqsz axial T2 and axial T2 FLAIR, and diffusion-weighted imaging through the brain were obtained. No contrast. COMPARISON: MR of the brain with contrast same date FINDINGS: No evidence of aneurysm mass cannot formation traversed and the vascularity. The major vessels are patent without evidence of atherosclerotic disease. IMPRESSION: 1. Normal MR angiogram of the brain.
--- NOTE | 2016-10-04 16:57 | Progress Note ---
Subjective General Patient seen and examined. Patient has no complaints at the moment. Patient has return of neurological function,. Constitutional Denies: Fever, Chills, Sweats, Weakness, Malaise, Other. Respiratory Denies: Cough, Dry, SOB w/exertion, Wheezing, Hemoptysis, Pleuritic Pain, Sputum , Other. Cardiovascular Denies: Chest Pain, Palpitations, Orthopnea, PND, Edema, Light-headedness, Other. Gastrointestinal Denies: Nausea, Vomiting, Abdominal Pain, Diarrhea, Constipation, Melena, Hematochezia, Other. Genitourinary Denies: Dysuria, Frequency, Incontinence, Hematuria, Retention, Other. Musculoskeletal Denies: Neck Pain, Shoulder Pain, Arm Pain, Back Pain, Hand Pain, Leg Pain, Foot Pain, Other. Neurological Denies: Weakness, Numbness, Incoordination, Change in speech, Confusion, Seizures, Other. Physical Exam General Appearance Alert, Oriented X3, No acute distress HEENT Atraumatic, PERRLA, Moist mucous membranes Lungs Clear to auscultation, Normal air movement Cardiovascular Regular rate and rhythm, Normal S1 and S2 Abdomen Soft, No tenderness Extremities No clubbing, No edema, No tenderness Skin No Breakdown, No Significant Lesions Psych/Mental Status Mood normal Assessment and Plan Problem List 1. TIA (transient ischemic attack) Plan - resolved - no more imaging required - pt will be discharged and will follow up with pmd 2. Pulmonary nodule Plan - will repeat imagin in 1-2 months - pt will take referral to pmd 3. Tobacco use disorder Plan - encourage patient to quit - pt will take our advice 4. Alcoholism Plan - pt reports that he has stopped drinking - pt does not wish for treatment referral
--- NOTE | 2016-10-04 17:13 | Discharge Summary ---
Discharge Summary Report Admit Date 10/03/16 Discharge Date 10/04/16 Admission Diagnosis transient ischemic attack Discharge Diagnosis transient ischemic attack Brief History Patient is a 60 year old male with a past medical history of Essential Hypertension, Hyperlipidemia, Alcoholism, and Tobacco Use Disorder. He presents to the ER complaining of sudden onset of facial droop and slurred speech. Pt states he was in his usual state of health today, when his noticed he was slouched in his chair. He seemed to be leaning to the right side. When she looked at him, the right side of his face was drooping. Pt states his speech was slurred also and he experienced blurry vision. Pt states he has been taking all of his medications as prescribed. He denies any chest pain, shortness of breath, nausea, vomiting, headache, palpitations, dizziness, and weakness at present. By the time pt was seen in the ER, his symptoms had completely resolved. Hospital Course Patient was admitted for transient ischemic attack. Patient initially presented with right sided weakness. Patients symptoms resolved while the patient was at the hospital. 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 Additionally patient had an echocardiogram of the heart which did not reveal any acute abnormality. Patient was advised to make changes to his diet and lifetstyle and to adhere to his medication regimen. Patient will follow up with Dr Fonseca as an out patient. General Appearance Alert, Oriented X3, No acute distress HEENT PERRLA, Mucous membran moist/pink Lungs Normal air movement Cardiovascular Normal S1, Normal S2, Gallops Abdomen Soft, No tenderness Neurological Normal speech, Normal tone, Sensation intact, Cranial nerves 3-12 NL Lab/Imaging Name: ADÁN MILLER : 55 Sex: Male Age: 60 MR#: [id number] Pt Status: ADM [place] Ordering Provider: LEIGHANN VILLASEÑOR MD REPORT #: [id number] DATE OF EXAM(S): 10/04/16 PROCEDURE: 2-D M-mode echo Doppler CLINICAL INDICATION: CVA TECHNIQUE: Standard 2-D M-mode echo Doppler technique COMPARISON: None available FINDINGS: The aortic valve exhibits sclerosis without evidence for stenosis or insufficiency no embolic source seen. The mitral valve is normal configuration without stenosis or insufficiency the tricuspid and pulmonic valves are normal. No embolic source seen on the valves. Left and right atrial dimensions are normal ventricular dimension is normal LVH present ejection fraction visually estimated to be 55-60% with normal contraction stage I diastolic dysfunction apparent. Right ventricular chamber size and function normal The aortic root is mildly dilated measuring 3.9 cm. definitive evidence of PFO not seen IMPRESSION: Aortic sclerosis no stenosis No embolic source seen Mildly dilated aortic root measuring 3.9 cm Left Ventricular ejection fraction 55-60% with normal contraction Stage I diastolic dysfunction Dictated by: AYESHA FELDER MD D: WARREN;10/04/16 1400 <Electronically signed by AYESHA FELDER MD in OV> 10/04/16 1401 Name: ADÁN MILLER : 55 Sex: Male Age: 60 MR#: [id number] Pt Status: ADM [place] Ordering Provider: RUDY LU MD REPORT #: [id number] DATE OF EXAM(S): 10/04/16 PROCEDURE: MR BRAIN W/WO CONTRAST INDICATION: tia TECHNIQUE: Multiplanar multisequence MRI imaging of the brain without contrast. Post administration of 20 ml ProHance gadolinium based IV contrast, three plane T1 fat sat sequences were obtained. COMPARISON: Head CT dated 10/03/2016 FINDINGS: The midline structures are normally formed. The ventricular system is normal in size. Basal cisterns are patent. Flow voids in the major intracranial vessels are normal. No vascular malformations seen post contrast. There is a small left thalamic infarct. No restricted diffusion to suggest acute ischemia. No evidence of acute or chronic intraparenchymal or extra-axial hemorrhage. No mass, mass effect, or midline shift. No suspicious enhancement. There is a fluid in the left maxillary sinus. IMPRESSION: 1. Small left thalamic infarct. 2. Left maxillary sinusitis Dictated by: ZULEMA QUIROZ MD D: ESKJO;10/04/161610 <Electronically signed by ZULEMA QUIROZ MD in OV> 10/04/161610 Name: ADÁN MILLER Petros : 55 Sex: Male Age: 60 MR#: [id number] Pt Status: ADM [place] Ordering Provider: RUDY LU MD REPORT #: [id number] DATE OF EXAM(S): 10/04/16 PROCEDURE: MR BRAIN W/WO CONTRAST INDICATION: tia TECHNIQUE: Multiplanar multisequence MRI imaging of the brain without contrast. Post administration of 20 ml ProHance gadolinium based IV contrast, three plane T1 fat sat sequences were obtained. COMPARISON: Head CT dated 10/03/2016 FINDINGS: The midline structures are normally formed. The ventricular system is normal in size. Basal cisterns are patent. Flow voids in the major intracranial vessels are normal. No vascular malformations seen post contrast. There is a small left thalamic infarct. No restricted diffusion to suggest acute ischemia. No evidence of acute or chronic intraparenchymal or extra-axial hemorrhage. No mass, mass effect, or midline shift. No suspicious enhancement. There is a fluid in the left maxillary sinus. IMPRESSION: 1. Small left thalamic infarct. 2. Left maxillary sinusitis Dictated by: ZULEMA QUIROZ MD D: RAJKFLORINA;10/04/161610 <Electronically signed by ZULEMA QUIROZ MD in OV> 10/04/16 1611 Laboratory Tests 10/03 Chemistry Plasma Sodium (136 - 145 mmol/L) 135 Plasma Potassium (3.5 - 5.1 mmol/L) 3.8 Plasma Chloride (98 - 107 mmol/L) 100 CO2 (Enzymatic) (21 - 32 mmol/L) 26 BUN (7 - 18 mg/dL) 17 Creatinine (0.6 - 1.3 mg/dL) 1.0 Est GFR ( Amer) (mL/min) >60 Est GFR (Non-Af Amer) (mL/min) >60 Glucose (70 - 110 mg/dL) 105 Plasma Calcium (8.5 - 10.1 mg/dL) 9.0 Plasma Magnesium (1.8 - 2.4 mg/dL) 2.1 Total Bilirubin (0.0 - 1.0 mg/dL) 0.3 AST (15 - 37 U/L) 38 ALT (12 - 78 U/L) 68 Alkaline Phosphatase (46 - 116 U/L) 55 Creatine Kinase (24 - 260 U/L) 90 Troponin (0.00 - 1.5 ng/mL) <0.05 Total Protein (6.4 - 8.2 g/dL) 7.4 Albumin (3.3 - 5.0 g/dL) 3.7 Amylase (25 - 115 U/L) 72 Lipase (73 - 393 U/L) 140 TSH 3rd Generation (0.30 - 3.74 uIU/mL) 2.078 Coagulation INR (0.8 - 1.2) 0.9 APTT (24 - 34 SECONDS) 24 Hematology WBC (4.5 - 11.5 K/uL) 10.6 RBC (4.50 - 5.90 M/uL) 5.30 Hgb (13.5 - 17.5 gm/dL) 17.0 Hct (41.0 - 53.0 %) 49.8 MCV (80 - 100 fL) 94 MCH (26 - 34 pg) 32 RDW (11.6 - 14.8 %) 13.6 Neut % (Auto) (50 - 75 %) 50.9 Lymph % (Auto) (25 - 40 %) 33.9 Bertie % (Auto) (3 - 14 %) 11.0 Eos % (Auto) (0 - 4 %) 3.2 Baso % (Auto) (0 - 2 %) 1.0 Plt Count, EDTA (150 - 400 K/uL) 229 PUBS MCHC (31 - 37 g/dL) 34 Toxicology Urine Opiates Screen (NEGATIVE) NEGATIVE Urine Methadone Screen (NEGATIVE) NEGATIVE Ur Barbiturates Screen (NEGATIVE) NEGATIVE U Amphetamin/Meth Scrn (NEGATIVE) NEGATIVE MDMA (Ecstasy) Screen (NEGATIVE) NEGATIVE U Benzodiazepines Scrn (NEGATIVE) NEGATIVE Urine Cocaine Screen (NEGATIVE) NEGATIVE U Cannabinoids Screen (NEGATIVE) POSITIVE Plasma/Serum Ethyl Alc (3 - 10 mg/dL) 153 Urines Urine Color LIGHT YELLOW Urine Appearance CLEAR Urine pH (5.0 - 8.0) 6.0 Ur Specific [place] (1.010 - 1.030) <= 1.005 Urine Protein (NEGATIVE) NEGATIVE Urine Ketones (NEGATIVE) NEGATIVE Urine Blood (NEGATIVE) NEGATIVE Urine Nitrite (NEGATIVE) NEGATIVE Urine Bilirubin (NEGATIVE) NEGATIVE Urine Urobilinogen (0.2 - 1.0 EU/dL) 0.2 Ur Leukocyte Esterase (NEGATIVE) NEGATIVE Urine RBC (0 - 1 rbc/hpf) NONE SEEN Urine WBC (0 - 1 wbc/hpf) NONE SEEN Ur Epithelial Cells (0 - 5 EPI/hpf) NONE SEEN Urine Bacteria (NONE SEEN) NONE SEEN Urine Glucose (NEGATIVE) NEGATIVE Urine Comment CULT NOT INDICATED 10/03 10/03 10/04 10/04 2106 2110 0525 1055 Chemistry Plasma Sodium (136 - 145 mmol/L) 137 Plasma Potassium (3.5 - 5.1 mmol/L) 4.4 Plasma Chloride (98 - 107 mmol/L) 105 CO2 (Enzymatic) (21 - 32 mmol/L) 22 BUN (7 - 18 mg/dL) 15 Creatinine (0.6 - 1.3 mg/dL) 1.0 Est GFR ( Amer) (mL/min) >60 Est GFR (Non-Af Amer) (mL/min) >60 Glucose (70 - 110 mg/dL) 100 Plasma Calcium (8.5 - 10.1 mg/dL) 8.5 Creatine Kinase (24 - 260 U/L) Cancelled 70 Troponin (0.00 - 1.5 ng/mL) Cancelled <0.05 Triglycerides (30 - 200 mg/dL) 101 Cholesterol (140 - 200 mg/dL) 152 LDL Cholesterol, Calc (mg/dL) 80 HDL Cholesterol (32 - 96 mg/dL) 52 LDL/HDL Ratio 1.5 Cholesterol/HDL Ratio 2.9 Coronary Risk Interp (0.4 - 1.0) 0.6 TSH 3rd Generation Cancelled Hematology WBC (4.5 - 11.5 K/uL) 8.3 RBC (4.50 - 5.90 M/uL) 4.87 Hgb (13.5 - 17.5 gm/dL) 15.5 Hct (41.0 - 53.0 %) 46.1 MCV (80 - 100 fL) 95 MCH (26 - 34 pg) 32 RDW (11.6 - 14.8 %) 14.0 Neut % (Auto) (50 - 75 %) 57.0 Lymph % (Auto) (25 - 40 %) 29.2 Bertie % (Auto) (3 - 14 %) 8.9 Eos % (Auto) (0 - 4 %) 4.1 Baso % (Auto) (0 - 2 %) 0.8 Plt Count, EDTA (150 - 400 K/uL) 207 PUBS MCHC (31 - 37 g/dL) 34 Microbiology Date/Time Procedure - Status Source Growth 10/04 1100 MRSA Screen - RECD NASAL Discharge Instructions/Meds - follow up with your primary care provider - take medications as prescribed
--- NOTE | 2016-10-04 17:13 | Discharge Summary ---
Discharge Summary Report Admit Date 10/03/16 Discharge Date 10/04/16 Admission Diagnosis transient ischemic attack Discharge Diagnosis transient ischemic attack Brief History Patient is a 60 year old male with a past medical history of Essential Hypertension, Hyperlipidemia, Alcoholism, and Tobacco Use Disorder. He presents to the ER complaining of sudden onset of facial droop and slurred speech. Pt states he was in his usual state of health today, when his noticed he was slouched in his chair. He seemed to be leaning to the right side. When she looked at him, the right side of his face was drooping. Pt states his speech was slurred also and he experienced blurry vision. Pt states he has been taking all of his medications as prescribed. He denies any chest pain, shortness of breath, nausea, vomiting, headache, palpitations, dizziness, and weakness at present. By the time pt was seen in the ER, his symptoms had completely resolved. Hospital Course Patient was admitted for transient ischemic attack. Patient initially presented with right sided weakness. Patients symptoms resolved while the patient was at the hospital. 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 Additionally patient had an echocardiogram of the heart which did not reveal any acute abnormality. Patient was advised to make changes to his diet and lifetstyle and to adhere to his medication regimen. Patient will follow up with Dr Fonseca as an out patient. General Appearance Alert, Oriented X3, No acute distress HEENT PERRLA, Mucous membran moist/pink Lungs Normal air movement Cardiovascular Normal S1, Normal S2, Gallops Abdomen Soft, No tenderness Neurological Normal speech, Normal tone, Sensation intact, Cranial nerves 3-12 NL Lab/Imaging Name: ADÁN MILLER : 55 Sex: Male Age: 60 MR#: [id number] Pt Status: ADM [place] Ordering Provider: LEIGHANN VILLASEÑOR MD REPORT #: [id number] DATE OF EXAM(S): 10/04/16 PROCEDURE: 2-D M-mode echo Doppler CLINICAL INDICATION: CVA TECHNIQUE: Standard 2-D M-mode echo Doppler technique COMPARISON: None available FINDINGS: The aortic valve exhibits sclerosis without evidence for stenosis or insufficiency no embolic source seen. The mitral valve is normal configuration without stenosis or insufficiency the tricuspid and pulmonic valves are normal. No embolic source seen on the valves. Left and right atrial dimensions are normal ventricular dimension is normal LVH present ejection fraction visually estimated to be 55-60% with normal contraction stage I diastolic dysfunction apparent. Right ventricular chamber size and function normal The aortic root is mildly dilated measuring 3.9 cm. definitive evidence of PFO not seen IMPRESSION: Aortic sclerosis no stenosis No embolic source seen Mildly dilated aortic root measuring 3.9 cm Left Ventricular ejection fraction 55-60% with normal contraction Stage I diastolic dysfunction Dictated by: AYESHA FELDER MD D: WARREN;10/04/16 1400 <Electronically signed by AYESHA FELDER MD in OV> 10/04/16 1401 Name: ADÁN MILLER : 55 Sex: Male Age: 60 MR#: [id number] Pt Status: ADM [place] Ordering Provider: RUDY LU MD REPORT #: [id number] DATE OF EXAM(S): 10/04/16 PROCEDURE: MR BRAIN W/WO CONTRAST INDICATION: tia TECHNIQUE: Multiplanar multisequence MRI imaging of the brain without contrast. Post administration of 20 ml ProHance gadolinium based IV contrast, three plane T1 fat sat sequences were obtained. COMPARISON: Head CT dated 10/03/2016 FINDINGS: The midline structures are normally formed. The ventricular system is normal in size. Basal cisterns are patent. Flow voids in the major intracranial vessels are normal. No vascular malformations seen post contrast. There is a small left thalamic infarct. No restricted diffusion to suggest acute ischemia. No evidence of acute or chronic intraparenchymal or extra-axial hemorrhage. No mass, mass effect, or midline shift. No suspicious enhancement. There is a fluid in the left maxillary sinus. IMPRESSION: 1. Small left thalamic infarct. 2. Left maxillary sinusitis Dictated by: ZULEMA QUIROZ MD D: ESKJO;10/04/161610 <Electronically signed by ZULEMA QUIROZ MD in OV> 10/04/161610 Name: ADÁN MILLER Petros : 55 Sex: Male Age: 60 MR#: [id number] Pt Status: ADM [place] Ordering Provider: RUDY LU MD REPORT #: [id number] DATE OF EXAM(S): 10/04/16 PROCEDURE: MR BRAIN W/WO CONTRAST INDICATION: tia TECHNIQUE: Multiplanar multisequence MRI imaging of the brain without contrast. Post administration of 20 ml ProHance gadolinium based IV contrast, three plane T1 fat sat sequences were obtained. COMPARISON: Head CT dated 10/03/2016 FINDINGS: The midline structures are normally formed. The ventricular system is normal in size. Basal cisterns are patent. Flow voids in the major intracranial vessels are normal. No vascular malformations seen post contrast. There is a small left thalamic infarct. No restricted diffusion to suggest acute ischemia. No evidence of acute or chronic intraparenchymal or extra-axial hemorrhage. No mass, mass effect, or midline shift. No suspicious enhancement. There is a fluid in the left maxillary sinus. IMPRESSION: 1. Small left thalamic infarct. 2. Left maxillary sinusitis Dictated by: ZULEMA QUIROZ MD D: RAJKFLORINA;10/04/161610 <Electronically signed by ZULEMA QUIROZ MD in OV> 10/04/16 1611 Laboratory Tests 10/03 Chemistry Plasma Sodium (136 - 145 mmol/L) 135 Plasma Potassium (3.5 - 5.1 mmol/L) 3.8 Plasma Chloride (98 - 107 mmol/L) 100 CO2 (Enzymatic) (21 - 32 mmol/L) 26 BUN (7 - 18 mg/dL) 17 Creatinine (0.6 - 1.3 mg/dL) 1.0 Est GFR ( Amer) (mL/min) >60 Est GFR (Non-Af Amer) (mL/min) >60 Glucose (70 - 110 mg/dL) 105 Plasma Calcium (8.5 - 10.1 mg/dL) 9.0 Plasma Magnesium (1.8 - 2.4 mg/dL) 2.1 Total Bilirubin (0.0 - 1.0 mg/dL) 0.3 AST (15 - 37 U/L) 38 ALT (12 - 78 U/L) 68 Alkaline Phosphatase (46 - 116 U/L) 55 Creatine Kinase (24 - 260 U/L) 90 Troponin (0.00 - 1.5 ng/mL) <0.05 Total Protein (6.4 - 8.2 g/dL) 7.4 Albumin (3.3 - 5.0 g/dL) 3.7 Amylase (25 - 115 U/L) 72 Lipase (73 - 393 U/L) 140 TSH 3rd Generation (0.30 - 3.74 uIU/mL) 2.078 Coagulation INR (0.8 - 1.2) 0.9 APTT (24 - 34 SECONDS) 24 Hematology WBC (4.5 - 11.5 K/uL) 10.6 RBC (4.50 - 5.90 M/uL) 5.30 Hgb (13.5 - 17.5 gm/dL) 17.0 Hct (41.0 - 53.0 %) 49.8 MCV (80 - 100 fL) 94 MCH (26 - 34 pg) 32 RDW (11.6 - 14.8 %) 13.6 Neut % (Auto) (50 - 75 %) 50.9 Lymph % (Auto) (25 - 40 %) 33.9 [place]icks[place] % (Auto) (3 - 14 %) 11.0 Eos % (Auto) (0 - 4 %) 3.2 Baso % (Auto) (0 - 2 %) 1.0 Plt Count, EDTA (150 - 400 K/uL) 229 PUBS MCHC (31 - 37 g/dL) 34 Toxicology Urine Opiates Screen (NEGATIVE) NEGATIVE Urine Methadone Screen (NEGATIVE) NEGATIVE Ur Barbiturates Screen (NEGATIVE) NEGATIVE U Amphetamin/Meth Scrn (NEGATIVE) NEGATIVE MDMA (Ecstasy) Screen (NEGATIVE) NEGATIVE U Benzodiazepines Scrn (NEGATIVE) NEGATIVE Urine Cocaine Screen (NEGATIVE) NEGATIVE U Cannabinoids Screen (NEGATIVE) POSITIVE Plasma/Serum Ethyl Alc (3 - 10 mg/dL) 153 Urines Urine Color LIGHT YELLOW Urine Appearance CLEAR Urine pH (5.0 - 8.0) 6.0 Ur Specific [place] (1.010 - 1.030) <= 1.005 Urine Protein (NEGATIVE) NEGATIVE Urine Ketones (NEGATIVE) NEGATIVE Urine Blood (NEGATIVE) NEGATIVE Urine Nitrite (NEGATIVE) NEGATIVE Urine Bilirubin (NEGATIVE) NEGATIVE Urine Urobilinogen (0.2 - 1.0 EU/dL) 0.2 Ur Leukocyte Esterase (NEGATIVE) NEGATIVE Urine RBC (0 - 1 rbc/hpf) NONE SEEN Urine WBC (0 - 1 wbc/hpf) NONE SEEN Ur Epithelial Cells (0 - 5 EPI/hpf) NONE SEEN Urine Bacteria (NONE SEEN) NONE SEEN Urine Glucose (NEGATIVE) NEGATIVE Urine Comment CULT NOT INDICATED 10/03 10/03 10/04 10/04 2106 2110 0525 1055 Chemistry Plasma Sodium (136 - 145 mmol/L) 137 Plasma Potassium (3.5 - 5.1 mmol/L) 4.4 Plasma Chloride (98 - 107 mmol/L) 105 CO2 (Enzymatic) (21 - 32 mmol/L) 22 BUN (7 - 18 mg/dL) 15 Creatinine (0.6 - 1.3 mg/dL) 1.0 Est GFR ( Amer) (mL/min) >60 Est GFR (Non-Af Amer) (mL/min) >60 Glucose (70 - 110 mg/dL) 100 Plasma Calcium (8.5 - 10.1 mg/dL) 8.5 Creatine Kinase (24 - 260 U/L) Cancelled 70 Troponin (0.00 - 1.5 ng/mL) Cancelled <0.05 Triglycerides (30 - 200 mg/dL) 101 Cholesterol (140 - 200 mg/dL) 152 LDL Cholesterol, Calc (mg/dL) 80 HDL Cholesterol (32 - 96 mg/dL) 52 LDL/HDL Ratio 1.5 Cholesterol/HDL Ratio 2.9 Coronary Risk Interp (0.4 - 1.0) 0.6 TSH 3rd Generation Cancelled Hematology WBC (4.5 - 11.5 K/uL) 8.3 RBC (4.50 - 5.90 M/uL) 4.87 Hgb (13.5 - 17.5 gm/dL) 15.5 Hct (41.0 - 53.0 %) 46.1 MCV (80 - 100 fL) 95 MCH (26 - 34 pg) 32 RDW (11.6 - 14.8 %) 14.0 Neut % (Auto) (50 - 75 %) 57.0 Lymph % (Auto) (25 - 40 %) 29.2 Dickson % (Auto) (3 - 14 %) 8.9 Eos % (Auto) (0 - 4 %) 4.1 Baso % (Auto) (0 - 2 %) 0.8 Plt Count, EDTA (150 - 400 K/uL) 207 PUBS MCHC (31 - 37 g/dL) 34 Microbiology Date/Time Procedure - Status Source Growth 10/04 1100 MRSA Screen - RECD NASAL Discharge Instructions/Meds - follow up with your primary care provider - take medications as prescribed
[2016-10-04] MEDS ORDERED: ATORVASTATIN CA20 MG PO (17:23)
[2016-10-04] MEDS ORDERED: ENTERIC COATED325 M1 PO (17:23)
--- NOTE | 2016-10-04 17:24 | Provider's Discharge Care Plan ---
Problem, Goal, Plan Problem List 1. TIA (transient ischemic attack) Instructions: Take meds as directed, - follow up with your primary care provider - take medications as prescribed
--- NOTE | 2016-10-04 22:57 | ED MAR SUMMARY ---
..... Medication Administration Record [facility] [address] [place] [address] Patient: ADÁN MILLER Visit ID: [id number] 60y, M Weight: 105.7 kg Height/Length: 69 in BMI: 34.4 ALLERGIES: No Known Drug Allergy Given 21:10 10/03/2016 Kaiden Samuels R.N. Medication Administered: ASPIRIN [PO], Dose: 325 mg PO. Medication Ordered: Aspirin PO 325 mg (NOW).
--- NOTE | 2016-10-04 22:57 | ED DISCHARGE INSTRUCTIONS ---
Patient: ADÁN MILLER General Instructions [facility] VisitID: [id number] [address] [place] [address] 60y, M Registration Date/Time: 10/03/2016 Pulmonary nodule right upper lobe. Transient ischemic attack. Substance abuse- alcohol, marijuana. (Electronically signed by Ifeanyi Fernandez MD 10/04/2016 22:56)
--- NOTE | 2016-10-04 22:57 | ED DISCHARGE INSTRUCTIONS ---
Patient: ADÁN MILLER General Instructions [facility] VisitID: [id number] [address] [place] [address] 60y, M Registration Date/Time: 10/03/2016 Pulmonary nodule right upper lobe. Transient ischemic attack. Substance abuse- alcohol, marijuana. (Electronically signed by Ifeanyi Fernandez MD 10/04/2016 22:56)
--- NOTE | 2016-10-04 22:57 | ED MED RECONCILIATION SUMMARY ---
Patient: ADÁN MILLER Medication Reconciliation Report [facility] VisitID: [id number] [address] [place] [address] 60y, M Registration Date/Time: 10/03/2016 Weight: 105.7 kg Height/Length: 69 in. BMI: 34.4 ALLERGIES: No Known Drug Allergy The patient's Home Medications are listed below: THE FOLLOWING MEDICATIONS NEED TO BE RECONCILED: Lisinopril Oral 20 mg, daily Metoprolol Tartrate Oral, daily The source(s) of the original Home Medication information: patient's spouse The following Medications were given to the patient in the Emergency Department: Aspirin [PO] PO 325 mg, administered: 10/03/2016 9:10:00 PM The following Medications were prescribed to the patient: None.
--- NOTE | 2016-10-04 22:57 | ED MED RECONCILIATION SUMMARY ---
Patient: ADÁN MILLER Medication Reconciliation Report [facility] VisitID: [id number] [address] [place] [address] 60y, M Registration Date/Time: 10/03/2016 Weight: 105.7 kg Height/Length: 69 in. BMI: 34.4 ALLERGIES: No Known Drug Allergy The patient's Home Medications are listed below: THE FOLLOWING MEDICATIONS NEED TO BE RECONCILED: Lisinopril Oral 20 mg, daily Metoprolol Tartrate Oral, daily The source(s) of the original Home Medication information: patient's spouse The following Medications were given to the patient in the Emergency Department: Aspirin [PO] PO 325 mg, administered: 10/03/2016 9:10:00 PM The following Medications were prescribed to the patient: None.
--- NOTE | 2016-10-04 22:57 | ED MAR SUMMARY ---
..... Medication Administration Record [facility] [address] [place] [address] Patient: ADÁN MILLER Visit ID: [id number] 60y, M Weight: 105.7 kg Height/Length: 69 in BMI: 34.4 ALLERGIES: No Known Drug Allergy Given 21:10 10/03/2016 Kaiden Samuels R.N. Medication Administered: ASPIRIN [PO], Dose: 325 mg PO. Medication Ordered: Aspirin PO 325 mg (NOW).
== END 2016-10-04 17:47 | disposition home or self-care (01) ==
LOC: ED SRH 18:43 → TRANS SRH 20:57 → ACUTE2 SRH 20:57
PROVIDERS: ADMIT Emergency Medicine
DX: G45.9 Transient cerebral ischemic attack, unspecified (principal); I10 Essential (primary) hypertension; E78.5 Hyperlipidemia, unspecified; R91.1 Solitary pulmonary nodule; F10.20 Alcohol dependence, uncomplicated; Y90.6 Blood alcohol level of 120-199 mg/100 ml; F12.129 Cannabis abuse with intoxication, unspecified; Z72.0 Tobacco use
CPT/HCPCS: 29230; 90004; 90047; 90074; 90100; 90616; 91672; 92010; 92132; 92235; 92530; 92610; 92690; 92720; 92760; 92761; 92762; 92763; 92764; 92765; 92766; 92767; 93140; 94001; 94060; 95059